=== PATIENT | female | born 1950 | race Caucasian/White ===

== ENCOUNTER 2017-09-28 05:46 | Emergency (ER) | payer MEDICARE, OTHER ==
[~2017-09-28] VITALS: Ht 157.5 cm; Wt 75.0 kg
[~2017-09-28 05:46] MED LIST: ALEN70TA48 PO; ASPI-1188 PO; ATEN50TA PO; ATOR10TA84 PO; LEVO100 PO; LISI-660 PO; NITR.4 SL; OMEP20CA10 PO; PRAV20TA4 PO; VIT. D3; [UNRECOGNIZED DRUG - OTHER]
[2017-09-28] MEDS ORDERED: AMLO2.5T PO (06:00)
[2017-09-28] MEDS ORDERED: LOSA25TA21 PO (06:00)
[2017-09-28 07:15] LABS: INFLUENZA TYPE B NEGATIVE FOR TYPE B (NEGATIVE)
[2017-09-28 07:59] VITALS: BP 102/59
[2017-09-28] MEDS ORDERED: OSELTAMIVIR PHOSPHATE 75 MG CAPSULE PO ONE (08:15)
[2017-09-28 08:23] LABS: APPEARANCE,URINE CLOUDY (CLEAR); GLUCOSE, URINE (UA) NEGATIVE (NEGATIVE); KETONES,URINE NEGATIVE (NEGATIVE); LEUKOCYTE ESTERASE ,URINE NEGATIVE (NEGATIVE); OCCULT BLOOD,URINE NEGATIVE (NEGATIVE); PH,URINE 7.5 (5.0-8.0); PROTEIN,URINE NEGATIVE (NEGATIVE)
[2017-09-28 08:31] LABS: RBC,URINE 0-2 /HPF (0-2); SQUAMOUS EPITHELIAL CELL,UR Moderate /LPF (None Seen); WBC,URINE 0-2 /HPF (0-5)
== END 2017-09-28 08:33 | disposition home or self-care (01) ==
LOC: EMS 05:47
DX: J09.X2 Influenza due to identified novel influenza A virus with other respiratory manifestations (principal); E78.00 Pure hypercholesterolemia, unspecified; I10 Essential (primary) hypertension; E03.9 Hypothyroidism, unspecified
CPT/HCPCS: 87804; 99285

== ENCOUNTER → 2018-08-04 | Outpatient (CLI) | payer MEDICARE, OTHER ==
[~2018-08-04] MED LIST changes: -ALEN70TA48 PO; +AMLO2.5T3 PO; -LISI-660 PO; +LOSA25TA16 PO; -OMEP20CA10 PO; -PRAV20TA4 PO; -[UNRECOGNIZED DRUG - OTHER]
== END | disposition home or self-care (01) ==
LOC: RADMN 16:02
PROVIDERS: ATTEND Family Medicine
DX: R68.84 Jaw pain (principal); J34.2 Deviated nasal septum
CPT/HCPCS: 70100

== ENCOUNTER 2018-12-18 12:43 | Emergency (ER) | payer OTHER ==
[~2018-12-18] VITALS: Ht 160 cm; Wt 75.0 kg
[~2018-12-18 12:43] MED LIST changes: -AMLO2.5T3 PO; +AMLO2.5T4 PO; -LOSA25TA16 PO; +LOSA25TA41 PO
[2018-12-18 14:50] LABS: INFLUENZA TYPE A NEGATIVE FOR TYPE A (NEGATIVE); INFLUENZA TYPE B NEGATIVE FOR TYPE B (NEGATIVE)
[2018-12-18 16:45] LABS: BASOPHILS % (AUTO) 1.1 % (0.0-2.0); EOSINOPHILS % (AUTO) 3.2 % (1.0-6.0); HEMATOCRIT 38.4 % (36-46); HEMOGLOBIN 12.7 g/dL (12.0-16.0); LYMPHOCYTES % (AUTO) 36.9 % (22.0-44.0); MEAN CORPUSCULAR HEMOGLOBIN 29.9 pg (26.0-34.0); MEAN CORPUSCULAR HGB CONC 33.2 G/dL (31.0-37.0); MEAN CORPUSCULAR VOLUME 90 fL (80-100); MONOCYTES # (AUTO) 0.7 K/uL (0.1-1.0); NEUTROPHILS # (AUTO) 2.4 K/uL (1.8-7.7); NEUTROPHILS % (AUTO) 45.8 % (40.0-70.0); PLATELET COUNT (AUTO) 253 K/uL (150-450); RED BLOOD CELL COUNT(AUTO) 4.26 MIL/uL (4.00-5.20); RED CELL DISTRIBUTION WIDTH 14.2 % (11.5-14.5)
[2018-12-18 16:53] LABS: ANION GAP 9 mmol/L (8-16); CALCIUM, TOTAL 9.3 mg/dL (8.8-10.5); CARBON DIOXIDE 27 mmol/L (22-29); CHLORIDE 107 mmol/L (98-107); CREATININE 0.71 mg/dL (0.60-1.30); GLOMERULAR FILTR. RATE CALC > 60 mL/min (>60); GLUCOSE,RANDOM 113 mg/dL (70-110); POTASSIUM 4.1 mmol/L (3.5-5.1); SODIUM SERUM 143 mmol/L (136-145); UREA NITROGEN, BLOOD 19 mg/dL (7-18)
[2018-12-18 17:09] LABS: B-TYPE NATRIURETIC PEPTIDE 23 pg/mL (0-100)
[2018-12-18 17:18] LABS: ALANINE AMINOTRANSFERASE 38 U/L (12-78); ALBUMIN 3.5 g/dL (3.4-5.0); ALKALINE PHOSPHATASE 113 U/L (46-116); ASPARTATE AMINOTRANSFERASE 19 U/L (15-37); BILIRUBIN,TOTAL 0.3 mg/dL (0.1-1.0); CREATINE KINASE, TOTAL ONLY 77 U/L (26-192); TOTAL PROTEIN, SERUM 6.7 g/dL (6.4-8.2)
[2018-12-18 18:18] VITALS: BP 117/65
== END 2018-12-18 18:25 | disposition home or self-care (01) ==
LOC: EMS 12:43
DX: J40 Bronchitis, not specified as acute or chronic (principal); E78.00 Pure hypercholesterolemia, unspecified; I10 Essential (primary) hypertension; E03.9 Hypothyroidism, unspecified; Z90.49 Acquired absence of other specified parts of digestive tract; Z79.82 Long term (current) use of aspirin
CPT/HCPCS: 87804; 93005

== ENCOUNTER 2022-10-16 07:58 | Inpatient (IN) | payer OTHER ==
[~2022-10-16] VITALS: Ht 160 cm; Wt 68.0 kg
[~2022-10-16 07:58] MED LIST changes: -AMLO2.5T4 PO; +AMLO2.5T96 PO; -ASPI-1188 PO; +ASPI-1522 PO; +ATEN-72 PO; -ATEN50TA PO; +ATOR10TA PO; -ATOR10TA84 PO; +LOSA-381 PO; -LOSA25TA41 PO; -NITR.4 SL; +NITR0.4T52 SL; -VIT. D3
[2022-10-16] MEDS ORDERED: ONDANSETRON HCL 4 MG/2 ML VIAL IVP ONE (08:30)
[2022-10-16] MEDS ORDERED: ACETAMINOPHEN 500 MG TABLET PO ONE (08:30)
[2022-10-16 08:42] LABS: COVID AG,FIA SOURCE NASOPHARYNGEAL
[2022-10-16 08:44] LABS: BASOPHILS % (AUTO) 0.6 % (0.0-2.0); EOSINOPHILS % (AUTO) 1.6 % (1.0-6.0); HEMATOCRIT 39.7 % (36-46); LYMPHOCYTES # (AUTO) 1.9 K/uL (1.0-4.8); LYMPHOCYTES % (AUTO) 29.3 % (22.0-44.0); MEAN CORPUSCULAR HEMOGLOBIN 30.6 pg (26.0-34.0); MEAN CORPUSCULAR HGB CONC 32.8 G/dL (31.0-37.0); MEAN CORPUSCULAR VOLUME 93 fL (80-100); MONOCYTES # (AUTO) 0.5 K/uL (0.1-1.0); MONOCYTES % (AUTO) 7.2 % (2.0-9.0); NEUTROPHILS % (AUTO) 61.3 % (40.0-70.0); PLATELET COUNT (AUTO) 254 K/uL (150-450); RED BLOOD CELL COUNT(AUTO) 4.26 MIL/uL (4.00-5.20); RED CELL DISTRIBUTION WIDTH 14.8 % (11.5-14.5)
[2022-10-16] MEDS ORDERED: MECLIZINE HCL 25 MG TABLET PO ONE (08:45)
[2022-10-16 09:02] LABS: B-TYPE NATRIURETIC PEPTIDE 28 pg/mL (0-100)
[2022-10-16 10:42] LABS: INFLUENZA TYPE A NEGATIVE FOR TYPE A (NEGATIVE); INFLUENZA TYPE B NEGATIVE FOR TYPE B (NEGATIVE)
[2022-10-16 11:07] LABS: ANION GAP 5 mmol/L (8-16); CARBON DIOXIDE 27 mmol/L (22-29); CHLORIDE 105 mmol/L (98-107); CREATININE 0.88 mg/dL (0.60-1.30); GLUCOSE,RANDOM 117 mg/dL (70-110); POTASSIUM 4.2 mmol/L (3.5-5.1); SODIUM SERUM 137 mmol/L (136-145); UREA NITROGEN, BLOOD 20 mg/dL (7-18)
[2022-10-16 11:13] LABS: ALANINE AMINOTRANSFERASE 42 U/L (12-78); ALBUMIN 3.9 g/dL (3.4-5.0); ALKALINE PHOSPHATASE 120 U/L (46-116); ASPARTATE AMINOTRANSFERASE 23 U/L (15-37); BILIRUBIN,TOTAL 0.4 mg/dL (0.1-1.0); CREATINE KINASE, TOTAL ONLY 74 U/L (26-192); PHOSPHORUS 3.1 mg/dL (2.5-4.9); TOTAL PROTEIN, SERUM 7.3 g/dL (6.4-8.2)
[2022-10-16 11:21] LABS: GLOMERULAR FILTR. RATE CALC > 60 mL/min (>60)
[2022-10-16 13:26] LABS: APPEARANCE,URINE CLEAR (CLEAR); BILIRUBIN,URINE NEGATIVE (NEGATIVE); GLUCOSE, URINE (UA) NEGATIVE (NEGATIVE); KETONES,URINE NEGATIVE (NEGATIVE); LEUKOCYTE ESTERASE ,URINE NEGATIVE (NEGATIVE); NITRATE,URINE NEGATIVE (NEGATIVE); OCCULT BLOOD,URINE NEGATIVE (NEGATIVE); PROTEIN,URINE NEGATIVE (NEGATIVE); SPECIFIC GRAVITIY, URINE 1.009 (1.003-1.030); UROBILINOGEN,URINE <=1.0 mg/dL (<=1.0)
[2022-10-16] MEDS ORDERED: ACETAMINOPHEN 325 MG TABLET PO PRN (14:00)
[2022-10-16] MEDS ORDERED: ONDANSETRON HCL 4 MG/2 ML VIAL IVP PRN (14:00)
[2022-10-16] MEDS ORDERED: 0.9% SODIUM CHLORIDE 10 ML SYRINGE IVP PRN (14:00)
[2022-10-16] MEDS ORDERED: MAGNESIUM HYDROXIDE SUSPENSION 30 ML UDCUP PO PRN (15:30)
[2022-10-16] MEDS: HEPARIN SODIUM,PORCINE 5,000 UNITS/ML VIAL SQ SCH (16:03)
[2022-10-16 22:30] VITALS: BP 133/64
[2022-10-16] MEDS: ATORVASTATIN CALCIUM 20 MG TABLET PO SCH (22:37)
[2022-10-17] MEDS: HEPARIN SODIUM,PORCINE 5,000 UNITS/ML VIAL SQ SCH ×3 (00:25→17:05)
[2022-10-17] MEDS: ACETAMINOPHEN 325 MG TABLET PO PRN ×4 (02:38→20:33)
[2022-10-17 04:40] VITALS: BP 111/55
[2022-10-17 06:50] LABS: BASOPHILS % (AUTO) 0.7 % (0.0-2.0); HEMATOCRIT 38.3 % (36-46); HEMOGLOBIN 12.9 g/dL (12.0-16.0); LYMPHOCYTES # (AUTO) 1.7 K/uL (1.0-4.8); LYMPHOCYTES % (AUTO) 28.2 % (22.0-44.0); MEAN CORPUSCULAR HEMOGLOBIN 31.1 pg (26.0-34.0); MEAN CORPUSCULAR HGB CONC 33.8 G/dL (31.0-37.0); MEAN CORPUSCULAR VOLUME 92 fL (80-100); MONOCYTES # (AUTO) 0.5 K/uL (0.1-1.0); MONOCYTES % (AUTO) 8.1 % (2.0-9.0); NEUTROPHILS # (AUTO) 3.6 K/uL (1.8-7.7); PLATELET COUNT (AUTO) 245 K/uL (150-450); RED BLOOD CELL COUNT(AUTO) 4.15 MIL/uL (4.00-5.20); RED CELL DISTRIBUTION WIDTH 14.9 % (11.5-14.5)
[2022-10-17 07:11] LABS: ALBUMIN 3.4 g/dL (3.4-5.0); BILIRUBIN,TOTAL 0.5 mg/dL (0.1-1.0); CREATININE 0.98 mg/dL (0.60-1.30); POTASSIUM 5.1 mmol/L (3.5-5.1); TOTAL PROTEIN, SERUM 6.6 g/dL (6.4-8.2)
[2022-10-17 07:17] LABS: CALCIUM, TOTAL 10.4 mg/dL (8.8-10.5)
[2022-10-17 08:00] VITALS: BP 119/62
[2022-10-17] MEDS ORDERED: MECLIZINE HCL 25 MG TABLET PO PRN (09:15)
[2022-10-17] MEDS: ASPIRIN 81 MG CHEWABLE TABLET PO SCH (10:01)
[2022-10-17] MEDS: FAMOTIDINE 20 MG TABLET PO SCH (10:01)
[2022-10-17 12:00] VITALS: BP 108/70
[2022-10-17 16:00] VITALS: BP 116/76
[2022-10-17] MEDS: ATORVASTATIN CALCIUM 20 MG TABLET PO SCH (20:33)
[2022-10-17 20:40] VITALS: BP 138/77
[2022-10-18] MEDS: HEPARIN SODIUM,PORCINE 5,000 UNITS/ML VIAL SQ SCH ×3 (01:01→16:00)
[2022-10-18 01:34] VITALS: BP 106/62
[2022-10-18 06:50] VITALS: BP 115/70
[2022-10-18] MEDS: FAMOTIDINE 20 MG TABLET PO SCH (08:53)
[2022-10-18] MEDS: ASPIRIN 81 MG CHEWABLE TABLET PO SCH (08:53)
[2022-10-18 11:09] VITALS: BP 118/67
[2022-10-18] MEDS ORDERED: MECL-160 PO (14:08)
[2022-10-18 14:41] LABS: THYROID STIMULATING HORMONE 0.74 uIU/mL (0.36-3.74)
[2022-10-18 16:05] VITALS: BP 110/68
== END 2022-10-18 17:10 | disposition home or self-care (01) | DRG 312 ==
LOC: EMS 08:00 → AHU 15:34 → 5S 19:42
PROVIDERS: ADMIT Internal Medicine; ATTEND Internal Medicine
DX: R55 Syncope and collapse (principal); E03.9 Hypothyroidism, unspecified; E78.5 Hyperlipidemia, unspecified; I10 Essential (primary) hypertension; R20.2 Paresthesia of skin; Z79.82 Long term (current) use of aspirin; Z79.899 Other long term (current) drug therapy; Z20.822 Contact with and (suspected) exposure to COVID-19; Z82.49 Family history of ischemic heart disease and other diseases of the circulatory system
CPT/HCPCS: 70450; 70551; 71045; 80053; 81003; 82550; 83735; 83880; 84100; 84443; 84484; 85025; 87804; 93005; 93306; 93880; 97162; 99285; G0378; J1644; J2405; 36415-L1; 36415-TC